=== PATIENT | female | born 1965 | race Caucasian/White ===

== ENCOUNTER 2017-05-01 00:58 | Emergency (ER) | payer OTHER ==
[~2017-05-01] VITALS: Ht 157.5 cm; Wt 71.0 kg
[2017-05-01] MEDS ORDERED: NORC5TAB PO (01:35)
--- NOTE | 2017-05-01 01:41 | PD ---
HPI Chief Complaint: Fall Time Seen by Provider: 01:28 Travel History International Travel<30 days: No Contact w/Intl Traveler<30days: No Traveled to known affect area: No History of Present Illness HPI 51-year-old white female presents emergency department with complaints of right ankle pain after inversion injury approximately 3 hours prior to arrival. Patient states that she was climbing down off a set of bleachers when she inverted her foot on the last step. The patient does not recall hearing or feeling a pop or crack. She states that she has not been able to bear weight since then. Pain is moderate. More severe with walking. Some relief with elevation and ibuprofen. Patient denies any injury to her head, neck or back. No numbness or tingling. PFSH Past Medical History Medical History: Denies Significant Hx Immunizations Current: Yes Tetanus Vaccination: < 5 Years Influenza Vaccination: No ?: Not Past Surgical History Narrative Surgical Hysterectomy Hysterectomy: Yes Social History Alcohol Use: Yes (occ) Tobacco Use: No Substance Use: No Allergies-Medications (Allergen,Severity, Reaction): Coded Allergies: No Known Allergies (Unverified , 05/01/17) Reported Meds & Prescriptions Reported Meds & Active Scripts Active [place] (Hydrocodone-Acetaminophen) 5 Mg-325 Mg Tab 1 Tab PO Q6H PRN 5 Days Review of Systems Except as stated in HPI: all other systems reviewed are Neg Physical Exam Narrative GENERAL: Well-developed, well-nourished in no apparent distress. Nontoxic appearing. HEAD: Normocephalic, atraumatic. EYES: Pupils equal round and reactive. Extraocular motions intact. No scleral icterus. No injection or drainage. ENT: Nose clear. Throat without erythema, tonsillar hypertrophy or exudate. Uvula midline. Airway patent. NECK: Trachea midline. Supple, nontender, moves head freely. No central bony tenderness or spasm. CARDIOVASCULAR: Regular rate and rhythm without murmurs, gallops, or rubs. RESPIRATORY: Clear to auscultation. Breath sounds equal bilaterally. No wheezes , rales, or rhonchi. GASTROINTESTINAL: Abdomen soft, non-tender, nondistended. No hepato-splenomegaly , or palpable masses. No guarding. EXTREMITIES: Examination of the right lower extremity reveals pain over the medial and lateral malleolus. Patient has a moderate amount of swelling. The skin is intact. No pain in the distal forefoot, toes, heel, Achilles, knee or hip. Patient has intact sensation with good distal pulses. The left lower extremity as well as the upper extremities are without localizing bony tenderness or deformity. Neurovascularly intact. BACK: Nontender without deformity. No flank tenderness. NEUROLOGICAL: Awake, alert and oriented x 3 .Cranial nerves grossly intact. Motor and sensory grossly within normal limits. Normal speech. Data Data Orders Orders Ankle, Complete ([id number]) (05/01/17 01:31) Ice/Cold Pack (05/01/17 01:31) Splint Or Brace Apply/Monitor (05/01/17 01:31) Crutches (05/01/17 01:31) Radiology Film Requests (05/01/17 ) Acetamin-Hydrocod 325-5 Mg ([place] 5-325 (05/01/17 02:00) Ed Discharge Order (05/01/17 01:53) MDM Medical Decision Making Medical Screen Exam Complete: Yes Emergency Medical Condition: Yes Medical Record Reviewed: Yes Interpretation(s) Right ankle: Distal fibular fracture, medial malleolar fracture, widened mortise. Differential Diagnosis MDM: High Differential diagnoses: Fracture, sprain, strain, dislocation, contusion, neurovascular injury Narrative Course Patient has declined any pain control. Ice pack applied. Posterior sugar tong splint and crutches. Diagnosis Primary Impression: Closed right ankle fracture Qualified Codes: S82.891A - Other fracture of right lower leg, initial encounter for closed fracture Patient Instructions: General Instructions, Narcotic given in the ED Additional Instructions: Rest. Elevation. Ice packs for the next 3 days. Posterior sugar tong splint 3-5 days and crutches. No weight-bearing. Medications as directed Follow-up with an orthopedist or your doctor in 3-5 days. Return to the ER if any problems Med/Other Pt SpecificInfo: Prescription(s) given Scripts Hydrocodone-Acetaminophen ([place]) 5 Mg-325 Mg Tab 1 TAB PO Q6H Y for PAIN for 5 Days, #20 TAB 0 Refills Prov: Jose Cameron MD 05/01/17 Disposition: 01 DISCHARGE HOME Condition: Stable Yan Ventura May 01, 2017 01:41
--- NOTE | 2017-05-01 01:59 | RADRPT ---
EXAM DATE/TIME: 05/01/2017 01:42 [facility] COMPARISON: No previous studies available for comparison. INDICATIONS : Trauma to ankle. MEDICAL HISTORY : None. SURGICAL HISTORY : None. ENCOUNTER: Initial ACUITY: 1 day PAIN SCORE: 8/10 LOCATION: Right ankle FINDINGS: There is a complete fracture of distal fibula involving the diaphysis with significant soft tissue sw elling and there is also a fracture of the medial malleolus. The ankle mortise appears grossly intact . CONCLUSION: Distal fibular and medial malleolar fractures. Anika Vicente MD on May 01, 2017 at 1:56 Board Certified Radiologist. This report was verified electronically.
[2017-05-01] MEDS ORDERED: ACETAMINOPHEN/HYDROcodone 325 MG/5 MG TAB PO ONE (02:00)
== END 2017-05-20 16:35 | disposition home or self-care (01) ==
LOC: NEPD 00:58
DX: S82.831A Other fracture of upper and lower end of right fibula, initial encounter for closed fracture (principal); S82.51XA Displaced fracture of medial malleolus of right tibia, initial encounter for closed fracture; X50.9XXA Other and unspecified overexertion or strenuous movements or postures, initial encounter
CPT/HCPCS: 29515; 73610; 99283; E0113